=== PATIENT | female | born 1950 | race Caucasian/White ===

== ENCOUNTER 2016-12-23 20:30 | Inpatient (IN) | payer MEDICARE ==
[~2016-12-23] VITALS: Ht 154.9 cm; Wt 102.0 kg
[2016-12-23 20:33] VITALS: BP 180/79; PULSE 80; RESP 14; TEMP 97.9
--- NOTE | 2016-12-23 21:13 | PD ---
HPI Chief Complaint: Pain: Acute or Chronic Time Seen by Provider: 21:04 Travel History International Travel<30 days: No Contact w/Intl Traveler<30days: No Traveled to known affect area: No History of Present Illness HPI 66-year-old female with history of DM type II, hypertension, dyslipidemia, previous IL, right-sided lobectomy presents emergency department for evaluation of right shoulder pain times approximately one week. Patient denies injury. She reports approximately 7 days ago she woke with right anterior chest wall and shoulder pain which was reproducible. She reports the pain as sharp, intermittent episodes lasting several seconds, worse with movement of the shoulder. She reports since the original onset the pain has continued and is worse with movement of the shoulder or palpation of the area, coughing or sneezing, and deep inspiration. She has been self medicating with Tylenol which improved symptoms slightly. She reports she became concerned that the source of the pain was possibly cancer within the right lung which prompted her visit today. She denies shortness of breath, palpitation, nausea, vomiting, diaphoresis. She reports this pain is not similar to the pain she had with a previous IL. PFSH Past Medical History Narrative Medical DM type II, hypertension, dyslipidemia, previous IL, right-sided lobectomy, hypothyroidism Arthritis: Yes Cancer: Yes (lymphoma diagnosed 11 years ago) Cardiovascular Problems: Yes High Cholesterol: Yes Cirrhosis: Yes Diabetes: Yes Patient Takes Glucophage: No Diminished Hearing: No GERD: Yes Hypertension: Yes Medical other: Yes (kidney and liver disease) Respiratory: Yes Thyroid Disease: Yes (hypo) Tetanus Vaccination: Unknown Influenza Vaccination: No ?: Not Past Surgical History Cardiac Surgery: Yes (triple bypass approx 5 years ago) Section: Yes (x 3) Cholecystectomy: Yes (2016) Other Surgery: Yes (R lung resection ) Social History Alcohol Use: No Tobacco Use: No Substance Use: No Allergies-Medications (Allergen,Severity, Reaction): Coded Allergies: Cephalosporins (Unverified Allergy, Unknown, 12/23/16) Reported Meds & Prescriptions Reported Meds & Active Scripts Active Reported Vitamin D2 (Ergocalciferol) 2,000 Unit Tab 5,000 Units PO MONTHLY Lantus Inj (Insulin Glargine) 1,000 Unit/10 Ml Vial 80 Units SQ HS Humalog Inj (Insulin Human Lispro) 1,000 Unit/10 Ml Vial 25 Units SQ BID Miralax (Polyethylene Glycol 3350) 17 Gm Powd.pack 1 Gm PO DAILY Multi Vitamin Daily (Multiple Vitamin) 1 Tab Tab 1 Mg PO DAILY Allergy (Loratadine) 10 Mg Tab 1 Mg PO DAILY Nexium (Esomeprazole DR) 20 Mg Capdr 20 Mg PO DAILY Aspirin 325 Mg Tab 325 Mg PO DAILY Stool Softener (Docusate Sodium) 100 Mg Cap 1 Mg PO DAILY Atorvastatin (Atorvastatin Calcium) 80 Mg Tab 80 Mg PO DAILY Valsartan 80 Mg Tab 80 Mg PO DAILY Furosemide 20 Mg Tab 20 Mg PO DAILY Potassium Chloride ER (Potassium Chloride) 20 Meq Tab 20 Meq PO DAILY Isosorbide Mononitrate ER (Isosorbide Mononitrate) 30 Mg Marin 30 Mg PO DAILY Metoprolol Tartrate 50 Mg Tab 50 Mg PO BID Levothyroxine (Levothyroxine Sodium) 25 Mcg Tab 25 Mcg PO DAILY Review of Systems Except as stated in HPI: all other systems reviewed are Neg General / Constitutional: No: Fever Eyes: No: Visual changes HENT: No: Headaches Cardiovascular: No: Chest Pain or Discomfort Respiratory: No: Shortness of Breath Gastrointestinal: No: Abdominal Pain Genitourinary: No: Dysuria Musculoskeletal: Positive: Pain (right shoulder pain) Skin: No Rash Physical Exam Narrative GENERAL: Alert, well-appearing female in no acute distress. SKIN: Focused skin assessment warm/dry. HEAD: Atraumatic. Normocephalic. EYES: Pupils equal and round. No scleral icterus. No injection or drainage. ENT: No nasal bleeding or discharge. Mucous membranes pink and moist. NECK: Trachea midline. No JVD. CARDIOVASCULAR: Regular rate and rhythm. No murmur appreciated. RESPIRATORY: No accessory muscle use. Clear to auscultation. Breath sounds equal bilaterally. TTP over the right lateral pectoralis/axillary region GASTROINTESTINAL: Abdomen soft, non-tender, nondistended. Hepatic and splenic margins not palpable. MUSCULOSKELETAL: No obvious deformities. No clubbing. No cyanosis. No edema. NEUROLOGICAL: Awake and alert. No obvious cranial nerve deficits. Motor grossly within normal limits. Normal speech. PSYCHIATRIC: Appropriate mood and affect; insight and judgment normal. Data Data Last Documented VS Vital Signs Date Time Temp Pulse Resp B/P Pulse Ox O2 Delivery O2 Flow Rate FiO2 12/23/16 20:38 12/23/16 20:33 97.9 80 14 Orders Electrocardiogram (12/23/16 21:06) Chest, Pa & Lat (12/23/16 21:06) Basic Metabolic Panel (Bmp) (12/23/16 21:13) Ckmb (Isoenzyme) Profile (12/23/16 21:13) Complete Blood Count With Diff (12/23/16 21:13) Troponin I (12/23/16 21:13) Iv Access Insert/Monitor (12/23/16 21:13) Sodium Chloride 0.9% Flush (Ns Flush) (12/23/16 21:15) CKMB (12/23/16 21:30) CKMB% (12/23/16 21:30) Ondansetron Inj (Zofran Inj) (12/23/16 22:45) Hydromorphone Pf Inj (Dilaudid Pf Inj) (12/23/16 22:45) Labs Laboratory Tests Test 12/23/16 21:30 White Blood Count 9.6 TH/MM3 Red Blood Count 4.41 MIL/MM3 Hemoglobin 13.1 GM/DL Hematocrit 37.6 % Mean Corpuscular Volume 85.4 FL Mean Corpuscular Hemoglobin 29.8 PG Mean Corpuscular Hemoglobin 34.8 % Concent Red Cell Distribution Width 12.7 % Platelet Count 203 TH/MM3 Mean Platelet Volume 8.5 FL Neutrophils (%) (Auto) 64.6 % Lymphocytes (%) (Auto) 22.5 % Monocytes (%) (Auto) 9.6 % Eosinophils (%) (Auto) 1.9 % Basophils (%) (Auto) 1.4 % Neutrophils # (Auto) 6.2 TH/MM3 Lymphocytes # (Auto) 2.2 TH/MM3 Monocytes # (Auto) 0.9 TH/MM3 Eosinophils # (Auto) 0.2 TH/MM3 Basophils # (Auto) 0.1 TH/MM3 CBC Comment DIFF FINAL Differential Comment Sodium Level 137 MEQ/L Potassium Level 4.6 MEQ/L Chloride Level 102 MEQ/L Carbon Dioxide Level 27.4 MEQ/L Anion Gap 8 MEQ/L Blood Urea Nitrogen 17 MG/DL Creatinine 1.30 MG/DL Estimat Glomerular Filtration 41 ML/MIN Rate Random Glucose 77 MG/DL Calcium Level 8.8 MG/DL Total Creatine Kinase 225 U/L Creatine Kinase MB 4.2 NG/ML Creatine Kinase MB % 1.9 % Troponin I 0.17 NG/ML MDM Medical Decision Making Medical Screen Exam Complete: Yes Emergency Medical Condition: Yes Differential Diagnosis Anterior chest wall strain, ACS, pneumonia, pneumothorax Narrative Course 66-year-old female with chief complaint of right anterior lateral chest wall pain times approximately 7 days. Patient reports that the pain is reproducible with palpation of the chest wall, range of motion of the right upper extremity, deep breath and coughing. Patient denies shortness breath, palpitations, nausea nausea vomiting or diaphoresis. She is adamant this pain is not similar to her previous MIs. On physical exam the patient is well-appearing. The pain is reproducible to palpation of the right pectoralis muscle. Given the patient' s multiple risk factors and EKG, chest x-ray and cardiac enzymes are ordered and pending. CBC: unremarkable BMP: Creatinine 1.3 Troponin: 0.17 CK-MB: 4.2 EKG: Reviewed with Dr. Villalta Sinus rhythm no ST elevation or depression. 2235: Patient will be managed by attending physician Dr. Villalta at this time. Please see his note for possible admission. Jessica Duncan Dec 23, 2016 21:13
[2016-12-23] MEDS ORDERED: SODIUM CHLORIDE 0.9% FLUSH 10 ML FLUSH IVF PRN (21:15)
[2016-12-23] MEDS ORDERED: LEVO25TA4 PO (21:18)
[2016-12-23] MEDS ORDERED: STOO100C PO (21:18)
[2016-12-23] MEDS ORDERED: NEXI20CA PO (21:18)
[2016-12-23] MEDS ORDERED: MULT1TAB46 PO (21:18)
[2016-12-23] MEDS ORDERED: ISOS30TA3 PO (21:18)
[2016-12-23] MEDS ORDERED: ATOR1TAB18 PO (21:18)
[2016-12-23] MEDS ORDERED: LANTUS2P SQ (21:18)
[2016-12-23] MEDS ORDERED: METO50TA PO (21:18)
[2016-12-23] MEDS ORDERED: POTA-163 PO (21:18)
[2016-12-23] MEDS ORDERED: HUMALOG SQ (21:18)
[2016-12-23] MEDS ORDERED: POLY17PO3 PO (21:18)
[2016-12-23] MEDS ORDERED: LORA-520 PO (21:18)
[2016-12-23] MEDS ORDERED: ASPI325T PO (21:18)
[2016-12-23] MEDS ORDERED: FURO20TA PO (21:18)
[2016-12-23] MEDS ORDERED: VALS1TAB64 PO (21:18)
[2016-12-23] MEDS ORDERED: ERGO2000 PO (21:19)
[2016-12-23 21:40] LABS: AUTOMATED NEUTROPHIL # 6.2 TH/MM3 (1.8-7.7); BASOPHIL # 0.1 TH/MM3 (0-0.2); BASOPHIL % 1.4 % (0.0-2.0); EOSINOPHIL # 0.2 TH/MM3 (0-0.4); EOSINOPHIL % 1.9 % (0.0-4.0); HEMATOCRIT 37.6 % (35.0-46.0); HEMO FLAGS DIFF FINAL; LYMPH % 22.5 % (9.0-44.0); LYMPHOCYTE # 2.2 TH/MM3 (1.0-4.8); MEAN CELL VOLUME 85.4 FL (80.0-100.0); MEAN CORPUSCULAR HEMOGLOBIN 29.8 PG (27.0-34.0); MEAN CORPUSCULAR HGB CONC 34.8 % (32.0-36.0); MONO % 9.6 % (0.0-8.0); NEUT % 64.6 % (16.0-70.0); PLATELET COUNT 203 TH/MM3 (150-450); RED BLOOD COUNT 4.41 MIL/MM3 (4.00-5.30); RED CELL DISTRIBUTION WIDTH 12.7 % (11.6-17.2); WHITE BLOOD COUNT 9.6 TH/MM3 (4.0-11.0)
[2016-12-23 21:50] LABS: POTASSIUM 4.6 MEQ/L (3.5-5.1)
[2016-12-23 21:53] LABS: BICARBONATE 27.4 MEQ/L (21.0-32.0)
--- NOTE | 2016-12-23 21:59 | RADRPT ---
EXAM DATE/TIME: 12/23/2016 21:24 [facility] COMPARISON: No previous studies available for comparison. INDICATIONS : Chest pain. MEDICAL HISTORY : Hypertension. Myocardial infarction. Diabetes mellitus type II. Lymphoma. SURGICAL HISTORY : CABG. Right lung resection. ENCOUNTER: Initial ACUITY: 1 week PAIN SCORE: 4/10 LOCATION: Right upper chest FINDINGS: No infiltrate, effusion or pneumothorax. Heart size upper limits of normal. Patient has had previous median sternotomy with wire as well as sc rew/plate fixation. CONCLUSION: No evidence of acute cardiopulmonary disease. Lavon Batista MD on December 23, 2016 at 21:57 Board Certified Radiologist. This report was verified electronically.
[2016-12-23 22:12] LABS: CKMB 4.2 NG/ML (0.5-3.6)
--- NOTE | 2016-12-23 22:36 | PD ---
HPI Chief Complaint: Pain: Acute or Chronic Time Seen by Provider: 20:56 Travel History International Travel<30 days: No Contact w/Intl Traveler<30days: No Traveled to known affect area: No History of Present Illness HPI This 66-year-old female is been having right-sided chest pain for the past week. Pain is aggravated by movements and stretching. This been going on for a week and she had no relief. She had coronary bypass surgery about 11 years ago and has done well since then. She had lymphoma in her right lung last year and had a thoracotomy done. She has never smoked. She has not been short of breath. She has not been diaphoretic. She does have a history of diabetes. She had a normal Lexiscan stress test in 2016. I have spoken to her doctor Dr. Simeon in [place] and he advises that his junior legal secretary get some further information in the morning. Phone [phone] [facility] Past Medical History Arthritis: Yes Cancer: Yes (lymphoma diagnosed 11 years ago) Cardiovascular Problems: Yes High Cholesterol: Yes Cirrhosis: Yes Diabetes: Yes Patient Takes Glucophage: No Diminished Hearing: No GERD: Yes Hypertension: Yes Medical other: Yes (kidney and liver disease) Respiratory: Yes Thyroid Disease: Yes (hypo) Tetanus Vaccination: Unknown Influenza Vaccination: No ?: Not Past Surgical History Cardiac Surgery: Yes (triple bypass approx 5 years ago) Section: Yes (x 3) Cholecystectomy: Yes (2016) Other Surgery: Yes (R lung resection ) Social History Alcohol Use: No Tobacco Use: No Substance Use: No Allergies-Medications (Allergen,Severity, Reaction): Coded Allergies: Cephalosporins (Unverified Allergy, Unknown, 12/23/16) Reported Meds & Prescriptions Reported Meds & Active Scripts Active Reported Vitamin D2 (Ergocalciferol) 2,000 Unit Tab 5,000 Units PO MONTHLY Lantus Inj (Insulin Glargine) 1,000 Unit/10 Ml Vial 80 Units SQ HS Humalog Inj (Insulin Human Lispro) 1,000 Unit/10 Ml Vial 25 Units SQ BID Miralax (Polyethylene Glycol 3350) 17 Gm Powd.pack 1 Gm PO DAILY Multi Vitamin Daily (Multiple Vitamin) 1 Tab Tab 1 Mg PO DAILY Allergy (Loratadine) 10 Mg Tab 1 Mg PO DAILY Nexium (Esomeprazole DR) 20 Mg Capdr 20 Mg PO DAILY Aspirin 325 Mg Tab 325 Mg PO DAILY Stool Softener (Docusate Sodium) 100 Mg Cap 1 Mg PO DAILY Atorvastatin (Atorvastatin Calcium) 80 Mg Tab 80 Mg PO DAILY Valsartan 80 Mg Tab 80 Mg PO DAILY Furosemide 20 Mg Tab 20 Mg PO DAILY Potassium Chloride ER (Potassium Chloride) 20 Meq Tab 20 Meq PO DAILY Isosorbide Mononitrate ER (Isosorbide Mononitrate) 30 Mg Marin 30 Mg PO DAILY Metoprolol Tartrate 50 Mg Tab 50 Mg PO BID Levothyroxine (Levothyroxine Sodium) 25 Mcg Tab 25 Mcg PO DAILY Review of Systems General / Constitutional: No: Fever, Chills Eyes: No: Diploplia, Blurred Vision HENT: No: Headaches, Vertigo Cardiovascular: Positive: Chest Pain or Discomfort Respiratory: No: Shortness of Breath Gastrointestinal: No: Nausea, Vomiting Genitourinary: No: Urgency, Frequency Musculoskeletal: Positive: Myalgias Skin: No Rash Physical Exam Narrative GENERAL: Well-developed female SKIN: Focused skin assessment warm/dry. HEAD: Atraumatic. Normocephalic. EYES: Pupils equal and round. No scleral icterus. No injection or drainage. ENT: No nasal bleeding or discharge. Mucous membranes pink and moist. NECK: Trachea midline. No JVD. CARDIOVASCULAR: Regular rate and rhythm. No murmur appreciated. RESPIRATORY: No accessory muscle use. Clear to auscultation. Breath sounds equal bilaterally. There is some tenderness of the right upper anterior chest GASTROINTESTINAL: Abdomen soft, non-tender, nondistended. Hepatic and splenic margins not palpable. MUSCULOSKELETAL: No obvious deformities. No clubbing. No cyanosis. No edema. NEUROLOGICAL: Awake and alert. No obvious cranial nerve deficits. Motor grossly within normal limits. Normal speech. PSYCHIATRIC: Appropriate mood and affect; insight and judgment normal. Data Data Last Documented VS Vital Signs Date Time Temp Pulse Resp B/P Pulse Ox O2 Delivery O2 Flow Rate FiO2 12/23/16 23:02 75 18 158/64 96 Room Air 12/23/16 20:33 97.9 Orders Electrocardiogram (12/23/16 21:06) Chest, Pa & Lat (12/23/16 21:06) Basic Metabolic Panel (Bmp) (12/23/16 21:13) Ckmb (Isoenzyme) Profile (12/23/16 21:13) Complete Blood Count With Diff (12/23/16 21:13) Troponin I (12/23/16 21:13) Iv Access Insert/Monitor (12/23/16 21:13) Sodium Chloride 0.9% Flush (Ns Flush) (12/23/16 21:15) CKMB (12/23/16 21:30) CKMB% (12/23/16 21:30) Ondansetron Inj (Zofran Inj) (12/23/16 22:45) Hydromorphone Pf Inj (Dilaudid Pf Inj) (12/23/16 22:45) Heparin Infusion YANE.Q1H (12/23/16 23:17) Heparin Inj (Heparin Inj) (12/23/16 23:30) Heparin Inj (Heparin Inj) (12/24/16 05:30) Heparin Inj (Heparin Inj) (12/24/16 05:30) Heparin-D5w Inj (Heparin-D5w Inj) (12/23/16 23:30) Act Partial Throm Time (Ptt) (12/23/16 23:17) Prothrombin Time / Inr (Pt) (12/23/16 23:17) Cbc No Diff, Includes Plts (12/23/16 23:17) Cbc No Diff, Includes Plts (12/26/16 06:00) Act Partial Throm Time (Ptt) (12/24/16 06:17) Occult Blood (Hemoccult) Stool (12/23/16 23:17) Labs Laboratory Tests Test 12/23/16 21:30 White Blood Count 9.6 TH/MM3 Red Blood Count 4.41 MIL/MM3 Hemoglobin 13.1 GM/DL Hematocrit 37.6 % Mean Corpuscular Volume 85.4 FL Mean Corpuscular Hemoglobin 29.8 PG Mean Corpuscular Hemoglobin 34.8 % Concent Red Cell Distribution Width 12.7 % Platelet Count 203 TH/MM3 Mean Platelet Volume 8.5 FL Neutrophils (%) (Auto) 64.6 % Lymphocytes (%) (Auto) 22.5 % Monocytes (%) (Auto) 9.6 % Eosinophils (%) (Auto) 1.9 % Basophils (%) (Auto) 1.4 % Neutrophils # (Auto) 6.2 TH/MM3 Lymphocytes # (Auto) 2.2 TH/MM3 Monocytes # (Auto) 0.9 TH/MM3 Eosinophils # (Auto) 0.2 TH/MM3 Basophils # (Auto) 0.1 TH/MM3 CBC Comment DIFF FINAL Differential Comment Sodium Level 137 MEQ/L Potassium Level 4.6 MEQ/L Chloride Level 102 MEQ/L Carbon Dioxide Level 27.4 MEQ/L Anion Gap 8 MEQ/L Blood Urea Nitrogen 17 MG/DL Creatinine 1.30 MG/DL Estimat Glomerular Filtration 41 ML/MIN Rate Random Glucose 77 MG/DL Calcium Level 8.8 MG/DL Total Creatine Kinase 225 U/L Creatine Kinase MB 4.2 NG/ML Creatine Kinase MB % 1.9 % Troponin I 0.17 NG/ML MDM Medical Decision Making Medical Screen Exam Complete: Yes Emergency Medical Condition: Yes Medical Record Reviewed: Yes Differential Diagnosis Differential includes musculoskeletal pain, coronary syndrome, Narrative Course EKG shows sinus rhythm without acute ST-T wave abnormalities. Her troponin is elevated at 0.17. She has pain only when she moves. Her creatinine is 1.3. I have not found a reason for her to have a false elevation of troponin though her symptoms are atypical for coronary artery disease. I have discussed the case with Dr. Dey who requests that we initiate heparin heparin and transferred the patient to CICU. Diagnosis Primary Impression: Chest pain Additional Impression: NSTEMI (non-ST elevated myocardial infarction) Admitting Information Admitting Physician Requests: Admit Roland Allred MD Dec 23, 2016 22:36
[2016-12-23] MEDS ORDERED: HYDROmorphone HCL PF 1 MG/ML VIAL IV PUSH ONE (22:45)
[2016-12-23] MEDS ORDERED: ONDANSETRON HCL 4 MG/2 ML VIAL IV PUSH ONE (22:45)
[2016-12-23 23:02] VITALS: BP 158/64; PULSE 75; RESP 18; O2SAT 96
[2016-12-23] MEDS ORDERED: HEPARIN-D5W INJ 250 ML IV SCH (23:30)
[2016-12-23] MEDS ORDERED: HEPARIN SODIUM - IV 10,000 UNITS/10 ML VIAL IV ONE (23:30)
[2016-12-23] MEDS ORDERED: SODIUM CHLORIDE 0.9% FLUSH 10 ML FLUSH IV FLUSH PRN (23:30)
[2016-12-23] MEDS ORDERED: NALOXONE HCL 0.4 MG/ML AMP IV PRN (23:30)
[2016-12-23 23:36] LABS: HEMATOCRIT 37.9 % (35.0-46.0); MEAN CELL VOLUME 86.8 FL (80.0-100.0); MEAN CORPUSCULAR HEMOGLOBIN 29.4 PG (27.0-34.0); MEAN CORPUSCULAR HGB CONC 33.8 % (32.0-36.0); PLATELET COUNT 228 TH/MM3 (150-450); RED BLOOD COUNT 4.37 MIL/MM3 (4.00-5.30); RED CELL DISTRIBUTION WIDTH 13.1 % (11.6-17.2); REVIEW FLAG FINAL; WHITE BLOOD COUNT 10.6 TH/MM3 (4.0-11.0)
[2016-12-24] VITALS (17 sets, daily range): BP systolic 115–178; BP diastolic 44–79; PULSE 64–74; RESP 17–20; TEMP 98.2–98.6; O2SAT 96–98
[2016-12-24 00:22] LABS: APTT (PATIENT) 27.4 SEC (24.3-30.1); PROTHROMBIN TIME - PATIENT 11.2 SEC (9.8-11.6)
--- NOTE | 2016-12-24 05:03 | EKG ---
Date Performed: 12/23/2016 Time Performed: 21:23:27 PTAGE: 66 years EKG: Sinus rhythm POSSIBLE LEFT ATRIAL ENLARGEMENT MARKED RIGHT AXIS DEVIATION POSSIBLE ANTERIOR MYOCARDIAL INFARCTION ABNORMAL ECG NO PREVIOUS TRACING DOCTOR: Kirk Harris Interpretating Date/Time 12/24/2016 05:02:25
[2016-12-24] MEDS ORDERED: HEPARIN SODIUM - IV 10,000 UNITS/10 ML VIAL IV PRN ×2 (05:30)
[2016-12-24 06:53] LABS: AUTOMATED NEUTROPHIL # 5.8 TH/MM3 (1.8-7.7); BASOPHIL # 0.1 TH/MM3 (0-0.2); BASOPHIL % 0.6 % (0.0-2.0); EOSINOPHIL # 0.2 TH/MM3 (0-0.4); EOSINOPHIL % 1.9 % (0.0-4.0); HEMATOCRIT 35.8 % (35.0-46.0); HEMO FLAGS DIFF FINAL; LYMPH % 27.1 % (9.0-44.0); LYMPHOCYTE # 2.8 TH/MM3 (1.0-4.8); MEAN CORPUSCULAR HEMOGLOBIN 29.2 PG (27.0-34.0); MEAN CORPUSCULAR HGB CONC 33.5 % (32.0-36.0); MONO % 13.2 % (0.0-8.0); NEUT % 57.2 % (16.0-70.0); PLATELET COUNT 173 TH/MM3 (150-450); RED BLOOD COUNT 4.11 MIL/MM3 (4.00-5.30); RED CELL DISTRIBUTION WIDTH 13.5 % (11.6-17.2); WHITE BLOOD COUNT 10.2 TH/MM3 (4.0-11.0)
[2016-12-24 07:10] LABS: APTT (PATIENT) 88.6 SEC (24.3-30.1)
[2016-12-24 07:30] LABS: BICARBONATE 28.9 MEQ/L (21.0-32.0); POTASSIUM 4.4 MEQ/L (3.5-5.1)
--- NOTE | 2016-12-24 07:34 | EKG ---
Date Performed: 12/24/2016 Time Performed: 03:32:06 PTAGE: 66 years EKG: Sinus rhythm POSSIBLE LEFT ATRIAL ENLARGEMENT MARKED RIGHT AXIS DEVIATION MINIMAL ST DEPRESSION ABNORMAL ECG Comp ared to prior tracing no significant change PREVIOUS TRACING : 12/23/2016 21.23 DOCTOR: Kirk Harris Interpretating Date/Time 12/24/2016 07:33:46
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
[2016-12-24] MEDS ORDERED: LACTULOSE SYRUP 20 GM/30 ML CUP PO PRN (08:30)
[2016-12-24] MEDS ORDERED: NALOXONE HCL 0.4 MG/ML AMP IV PRN (08:30)
[2016-12-24] MEDS ORDERED: MAGNESIUM HYDROXIDE SUSP 30 ML CUP PO PRN (08:30)
[2016-12-24] MEDS ORDERED: ZOLPIDEM TARTRATE 5 MG TAB PO PRN (08:30)
[2016-12-24] MEDS ORDERED: SENNOSIDES 8.6 MG TAB PO PRN (08:30)
[2016-12-24] MEDS ORDERED: BISACODYL 10 MG SUPP RECTAL PRN (08:30)
[2016-12-24] MEDS ORDERED: LEVOTHYROXINE SODIUM 25 MCG TAB PO SCH (08:39)
[2016-12-24] MEDS ORDERED: ISOSORBIDE MONONITRATE 30 MG TAB PO SCH (08:39)
[2016-12-24] MEDS ORDERED: MORPHINE SULFATE 8 MG/ML INJ IV PUSH PRN (08:45)
[2016-12-24] MEDS ORDERED: SODIUM CHLOR 0.9% 1000 ML INJ 1,000 ML IV SCH (08:45)
[2016-12-24] MEDS ORDERED: ATORVASTATIN 80 MG TAB PO SCH (09:00)
[2016-12-24] MEDS ORDERED: VALSARTAN 80 MG TAB PO SCH (09:00)
[2016-12-24] MEDS ORDERED: DOCUSATE SODIUM 50 MG/SENNA 8.6 MG TAB PO SCH (09:00)
[2016-12-24] MEDS ORDERED: FUROSEMIDE 20 MG TAB PO SCH (09:00)
[2016-12-24] MEDS ORDERED: SODIUM CHLORIDE 0.9% FLUSH 10 ML FLUSH IV FLUSH SCH (09:00)
[2016-12-24] MEDS ORDERED: METOPROLOL TARTRATE 50 MG TAB PO SCH (09:00)
[2016-12-24 09:42] LABS: FREE T4 1.38 NG/DL (0.76-1.46); HDL CHOLESTEROL 43.6 MG/DL (40.0-60.0); LDL CHOLESTEROL 34 MG/DL (0-99)
[2016-12-24] MEDS: INSULIN NovoLIN REGULAR SUPPLEMENTAL SCALE SQ SCH ×2 (11:00→16:00)
[2016-12-24] MEDS ORDERED: EPINEPHrine HCL (1:10,000) 1 MG/10 ML SYRINGE ONE (12:32)
[2016-12-24] MEDS ORDERED: ATROPINE SULFATE 1 MG/10 ML SYRINGE ONE (12:32)
--- NOTE | 2016-12-24 13:25 | MB ---
cc: YARA HELTON DATE OF CONSULTATION 12/24/2016 REASON FOR CONSULTATION Ms. Quach is a 66-year-old white female with a history of coronary disease, myocardial infarction and three-vessel coronary artery bypass six years ago. She also had right lung lobectomy. She was complaining of right shoulder pain that was sharp, worse with movement of the shoulder. She has not had any chest pain. She had chest pain and left arm pain prior to the bypass. PAST MEDICAL HISTORY Positive for: 1. Previous bypass six years ago 2. Coronary artery disease 3. Myocardial infarction 4. Type 2 diabetes mellitus 5. Hypertension 6. Dyslipidemia 7. Right lobectomy 8. Hypothyroidism 9. Osteoarthritis 10. Lymphoma 11. Cirrhosis 12. Gastroesophageal reflux disease 13. History of 14. Cholecystectomy MEDICATIONS Medications include: 1. Levothyroxine 2. Metoprolol 3. Isosorbide 4. Potassium 5. Furosemide 6. 7. Pravastatin 8. Stool softener 9. Aspirin 10. Nexium 11. Lortab 12. Multi-vitamins 13. MiraLax 14. Humulin insulin 15. Vitamin D2 ALLERGIES CEPHALOSPORIN SOCIAL HISTORY The patient smokes. She does not drink alcohol. She moved to [place] about two and half years ago. She has lives in [place] until recently. 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 She has a primary physician in [place]. FAMILY HISTORY Negative for heart disease. REVIEW OF SYSTEMS Otherwise negative. PHYSICAL EXAMINATION VITAL SIGNS: Blood pressure 142/71, pulse 58 and regular. HEENT: Negative. 2+ carotid upstrokes. No bruits. LUNGS: Clear. HEART: Regular with no murmur, gallop or rub. ABDOMEN: Soft. No bruits. EXTREMITIES: Without edema. 2+ pulses. NEUROLOGIC: Grossly nonfocal. EKG was reviewed and showed a normal sinus rhythm, right axis, delayed R-wave progression in all pericardial leads. No acute changes. LABORATORY DATA Hemoglobin 12.0, potassium 4.4, creatinine 1.3, troponin 0.7 and 0.16, CK-MB index normal, CK 225 and 186, HDL 44, LDL 34. DIAGNOSIS 1. Right shoulder pain. 2. Coronary artery disease status post myocardial infarction and coronary bypass. 3. Mildly abnormal troponin. 4. Diabetes mellitus 5. Hypertension 6. Dyslipidemia 7. Status post right lobectomy DISPOSITION Ms. Quach will be evaluated for pulmonary embolism. Her troponin is not trending in either direction and neither her symptoms nor her EKG is consistent with acute coronary syndrome. I recommend to continue her current medical program. If her evaluation for PE is unremarkable, she can be discharged home. I will see her back for followup in our office shortly after discharge. This was discussed with the patient and she understands the plan. MD HERNANDO Elaine/NADIYA /1:01 PM /1:10 PM
--- NOTE | 2016-12-24 14:15 | RADRPT ---
EXAM DATE/TIME: 12/24/2016 13:30 [facility] COMPARISON: No previous studies available for comparison. INDICATIONS : Right shoulder pain, no known injury. MEDICAL HISTORY : frozen shoulder SURGICAL HISTORY : None. ENCOUNTER: Initial ACUITY: 1 week PAIN SCORE: 5/10 LOCATION: Right shoulder FINDINGS: Multiple view examination of the right shoulder demonstrates no evidence of fracture or dislocation. The glenohumeral and acromioclavicular joints are maintained. There is normal range of motion betwe en internal and external rotation. Bony mineralization is normal. The patient is status post sternot gama. CONCLUSION: No acute disease. Lavon Everett MD on December 24, 2016 at 14:13 Board Certified Radiologist. This report was verified electronically.
--- NOTE | 2016-12-24 15:15 | RADRPT ---
EXAM DATE/TIME: 12/24/2016 12:54 [facility] COMPARISON: No previous studies available for comparison. INDICATIONS : Rightt shoulder and chest pain. DOSE: 8.2 mCi Tc99m MAA IV 0.7 mCi Tc99m DTPA aerosol MEDICAL HISTORY : Diabetes mellitus type 2. Gastroesophageal reflux disease. Lymphoma. Hypertension. SURGICAL HISTORY : CABG Cholecystectomy. Right lobectomy. ENCOUNTER: Initial ACUITY: 1 week PAIN SCALE: 4/10 LOCATION: Right chest TECHNIQUE: Following five minutes of tidal breathing of DTPA aerosol, planar images of the lungs were performed in eight projections. The patient was then injected with MAA, and eight-view perfusion scan was perf ormed. FINDINGS: There is a homogeneous pattern of aerosol delivery to the periphery of both lungs. No focal ventilat ory defects are seen. The perfusion lung scan demonstrates a homogenous pattern of uptake in both lungs. No segmental or s ubsegmental defects are seen. CONCLUSION: 1. Negative examination. Nito Tim MD on December 24, 2016 at 15:13 Board Certified Radiologist. This report was verified electronically.
[2016-12-24 15:51] LABS: HEMOGLOBIN A1a 1.1 %; HEMOGLOBIN Ao 81.3 %; HEMOGLOBIN F 1.5 %; HEMOGLOBIN LA1C 2.1 %
[2016-12-24 16:49] LABS: APTT (PATIENT) 47.4 SEC (24.3-30.1)
--- NOTE | 2016-12-24 17:28 | HHI.DS ---
Discharge Summary Admission Date Dec 23, 2016 at 23:22 Discharge Date: Dec 24, 2016 Admitting Diagnosis NSTEMI (1) Chest pain ICD Code: R07.9 Diagnosis: Principal Procedures None Brief History - From Admission This is a pleasant 66 y/o Female with DM II< Hypertension, Hyperlipidemia, CAD with previous [place] S/P CABG x 3, Status post Right Lung Lobectomy, who came to ER with complaint of right shoulder pain times approximately one week. Patient denies injury. She reports approximately 7 days ago she woke with right anterior chest wall and shoulder pain which was reproducible. She reports the pain as sharp, intermittent episodes lasting several seconds, worse with movement of the shoulder. She reports since the original onset the pain has continued and is worse with movement of the shoulder or palpation of the area, coughing or sneezing, and deep inspiration. She has been self medicating with Tylenol which improved symptoms slightly. She reports she became concerned that the source of the pain was possibly cancer within the right lung which prompted her visit today. She denies shortness of breath, palpitation, nausea, vomiting, diaphoresis. She reports this pain is not similar to the pain she had with a previous [place]. her Doctor is Doctor Simeon in [place] phone number [phone] EKG shows sinus rhythm without acute ST-T wave abnormalities. Her troponin is elevated at 0.17. She has pain only when she moves. Her creatinine is 1.3. I have not found a reason for her to have a false elevation of troponin though her symptoms are atypical for coronary artery disease. I have discussed the case with Dr. Nolan who requests that we initiate heparin heparin and transferred the patient to CICU. Seen in her bedroom and discussed with physician relations specialist Doctor Cliff Nolan prefer to rule out Pulmonary Emboli and he will follow the patient outpatient in his office for possible Stress test, do not believe in Cardiac Source of pain at this time. Cardiac enzymes trending down. CBC/BMP: 12/24/16 0549 12/24/16 0549 Significant Findings Laboratory Tests Test 12/23/16 12/24/16 12/24/16 12/24/16 21:30 03:23 05:49 12:03 Monocytes (%) (Auto) 9.6 % (0.0-8.0) 13.2 % (0.0-8.0) Creatinine 1.30 MG/DL 1.30 MG/DL (0.50-1.00) (0.50-1.00) Estimat Glomerular Filtration 41 ML/MIN (>89) 41 ML/MIN (>89) Rate Total Creatine Kinase 225 U/L (26-192) Creatine Kinase MB 4.2 NG/ML (0.5-3.6) Troponin I 0.17 NG/ML 0.16 NG/ML 0.16 NG/ML (0.02-0.05) (0.02-0.05) (0.02-0.05) Monocytes # (Auto) 1.4 TH/MM3 (0-0.9) Activated Partial 88.6 SEC Thromboplast Time (24.3-30.1) Blood Urea Nitrogen 20 MG/DL (7-18) Random Glucose 138 MG/DL (74-106) Triglycerides Level 172 MG/DL (42-150) Cholesterol Level 112 MG/DL (120-200) Test 12/24/16 16:05 Activated Partial 47.4 SEC Thromboplast Time (24.3-30.1) Imaging Last Impressions Lung Scan-V Nuclear Medicine 12/24/16 0942 Signed Impressions: Service Date/Time: Saturday, December 24, 2016 12:54 - CONCLUSION: 1. Negative examination. Nito Tim MD Shoulder X-Ray 12/24/16 0000 Signed Impressions: Service Date/Time: Saturday, December 24, 2016 13:30 - CONCLUSION: No acute disease. Lavon Everett MD Chest X-Ray 12/23/166 Signed Impressions: Service Date/Time: Friday, December 23, 2016 21:24 - CONCLUSION: No evidence of acute cardiopulmonary disease. Lavon Batista MD PE at Discharge GENERAL: Obese patient in no acute distress. SKIN: Focused skin assessment warm/dry. HEAD: Atraumatic. Normocephalic. EYES: Pupils equal and round. No scleral icterus. No injection or drainage. ENT: No nasal bleeding or discharge. Mucous membranes pink and moist. NECK: Trachea midline. No JVD. CARDIOVASCULAR: Regular rate and rhythm. No murmur appreciated. RESPIRATORY: No accessory muscle use. Clear to auscultation. Breath sounds equal bilaterally. TTP over the right lateral pectoralis/axillary region GASTROINTESTINAL: Abdomen soft, non-tender, nondistended. Hepatic and splenic margins not palpable. MUSCULOSKELETAL: No obvious deformities. No clubbing. No cyanosis. No edema. NEUROLOGICAL: Awake and alert. No obvious cranial nerve deficits. Motor grossly within normal limits. Normal speech. PSYCHIATRIC: Appropriate mood and affect; insight and judgment normal. Hospital Course This is a pleasant 66 y/o Female with DM II< Hypertension, Hyperlipidemia, CAD with previous [place] S/P CABG x 3, Status post Right Lung Lobectomy, who came to ER with complaint of right shoulder pain times approximately one week. Patient denies injury. She reports approximately 7 days ago she woke with right anterior chest wall and shoulder pain which was reproducible. She reports the pain as sharp, intermittent episodes lasting several seconds, worse with movement of the shoulder. She reports since the original onset the pain has continued and is worse with movement of the shoulder or palpation of the area, coughing or sneezing, and deep inspiration. She has been self medicating with Tylenol which improved symptoms slightly. She reports she became concerned that the source of the pain was possibly cancer within the right lung which prompted her visit today. She denies shortness of breath, palpitation, nausea, vomiting, diaphoresis. She reports this pain is not similar to the pain she had with a previous [place]. her Doctor is Doctor Simeon in [place] phone number [phone] EKG shows sinus rhythm without acute ST-T wave abnormalities. Her troponin is elevated at 0.17. She has pain only when she moves. Her creatinine is 1.3. I have not found a reason for her to have a false elevation of troponin though her symptoms are atypical for coronary artery disease. I have discussed the case with Dr. Nolan who requests that we initiate heparin heparin and transferred the patient to CICU. Seen in her bedroom and discussed with physician relations specialist Doctor Cliff Nolan prefer to rule out Pulmonary Emboli and he will follow the patient outpatient in his office for possible Stress test, do not believe in Cardiac Source of pain at this time. Cardiac enzymes trending down. Assessment and Plan 1. Atypical Chest pain stable continue Cardiac enzymes, Cardiac monitoring, physician relations specialist Doctor Otakar Quadrant recommended to rule out PE and if no pathology to discharge Home Ruled out PE , no need for further Cardiac workup will be followed by Doctor Nolan as outpatient for Stress Test. 2. DM II continue sliding scale and ADA diet. 3. Hypertension uncontrolled re start Home medicines 4. Hyperlipidemia continue statins. 5. CAD with previous [place], status post CABG x 3 6. Right sided Lobectomy/Lymphoma diagnosed 11 years ago 7. Hypothyroidism to continue Hormonal replacement therapy 8. OA complaint of right shoulder pain will get Right shoulder X rays 9. Cirrhosis secondary to Cholecystectomy complication 10. Obesity strongly recommended diet and exercise as outpatient DVT prophylaxis at this time on Heparin drip Code Status Full Code. Discussed Condition With Patient, Nurse and physician relations specialist Doctor Cliff Nolan. Pt Condition on Discharge: Good Discharge Disposition: Discharge Home Discharge Time: <= 30 minutes Discharge Instructions DIET: Follow Instructions for: Heart Healthy Diet, Diabetic Diet Activities you can perform: Regular-No Restrictions Isaiah Magana MD Dec 24, 2016 17:28
== END 2016-12-24 18:15 | disposition home or self-care (01) | DRG 313 ==
LOC: PHEFT 20:30 → PHEDA 23:22 → HCIN 12-24 04:10
PROVIDERS: ADMIT Internal Medicine; ATTEND Internal Medicine
DX: R07.9 Chest pain, unspecified (principal); I25.2 Old myocardial infarction; Z68.41 Body mass index [BMI] 40.0-44.9, adult; K74.69 Other cirrhosis of liver; I10 Essential (primary) hypertension; E11.9 Type 2 diabetes mellitus without complications; Z95.1 Presence of aortocoronary bypass graft; I25.10 Atherosclerotic heart disease of native coronary artery without angina pectoris; M19.90 Unspecified osteoarthritis, unspecified site; E78.5 Hyperlipidemia, unspecified; E03.9 Hypothyroidism, unspecified; E66.9 Obesity, unspecified; F17.210 Nicotine dependence, cigarettes, uncomplicated; K21.9 Gastro-esophageal reflux disease without esophagitis; Z90.2 Acquired absence of lung [part of]; Z85.72 Personal history of non-Hodgkin lymphomas; Z79.4 Long term (current) use of insulin
CPT/HCPCS: 71020; 73030; 78582; 80048; 80061; 82550; 82552; 82948; 83036; 84439; 84443; 84484; 85025; 85027; 85610; 85730; 93005; A9540; A9567; J0171; J0461; J1170; J1644; J2270; J2405; J7030